=== PATIENT | male | born 1975 | race Hispanic/Latino ===

== ENCOUNTER 2017-12-26 05:39 | Emergency (ER) | payer SELFPAY ==
[2017-12-26] MEDS ORDERED: Lidocaine 1% PF 5 ML VIAL ONE (06:24)
[2017-12-26] MEDS ORDERED: Ketorolac Tromethamine 30 MG/ML VIAL ONE (08:09)
--- NOTE | 2017-12-26 08:40 | RAD ---
LEFT HAND 3 VIEWS: HISTORY: A 42-year-old male with a history of pain. FINDINGS: Three views of the left hand demonstrate no evidence for acute fracture or dislocation or other signi ficant acute osseous abnormality. No evidence for foreign body. IMPRESSION: No significant acute process involving the left hand. POS: [facility]
== END 2017-12-26 09:11 | disposition home or self-care (01) ==
LOC: ERS 05:39
DX: S62.502A Fracture of unspecified phalanx of left thumb, initial encounter for closed fracture (principal); S60.112A Contusion of left thumb with damage to nail, initial encounter; F17.210 Nicotine dependence, cigarettes, uncomplicated; W22.8XXA Striking against or struck by other objects, initial encounter
CPT/HCPCS: 10140; 96372; J1885; J2001